=== PATIENT | female | born 1985 | race Caucasian/White ===

== ENCOUNTER → 2019-12-04 13:55 | Outpatient (CLI) | payer OTHER, SELFPAY ==
--- NOTE | ~2019-12-04 | CT_ITS ---
EXAMINATION: CT abdomen pelvis wo con DATE: 12/04/2019 14:17 INDICATION: Bilateral flank pain TECHNIQUE: Computed tomography (CT) of the abdomen and pelvis was performed without intravenous contr ast. The dose-length product (DLP) was 336.22 mGy-cm. Automated exposure control and iterative recons truction technique were employed. COMPARISON: 02/28/2017 FINDINGS: The lung bases are clear. The heart size is normal. The liver, spleen, pancreas, gallbladde r, and adrenal glands are normal. There are three nonobstructing stones of the right kidney which dexter sure up to 3 mm. There are three nonobstructing stones of the left kidney which measure up to 2 mm. A lthough the ureters are difficult to follow due to paucity of abdominal fat, there is a 2 mm calcific ation of the right pelvis in the expected location of the distal right ureter which was not present o n the prior examination. No pathologically enlarged abdominal or pelvic lymph nodes are identified. T here is no free intraperitoneal gas or evidence of bowel obstruction. IMPRESSION: 1. 2 mm calcification of the right pelvis in the expected location of the distal right ureter not bibi ntified on the prior examination, likely distal ureteral stone. 2. Bilateral nephrolithiasis. Reviewed, dictated and finalized at location B. IMPRESSION: 1. 2 mm calcification of the right pelvis in the expected location of the dista l right ureter not identified on the prior examination, likely distal ureteral stone. 2. Bilateral nephrolithiasis.
--- NOTE | ~2019-12-04 | XR_ITS ---
EXAMINATION: XR abdomen/kub 1V INDICATION: Flank and pelvic pain TECHNIQUE: Supine views of the abdomen were obtained on 2 radiographs. COMPARISON: None FINDINGS: There are punctate calcifications of the kidneys corresponding to the stone described on CT from today. A 2 mm calcification of the right pelvis may reflect the suspected distal ureteral stone from today CT. The bowel gas pattern is normal. The visualized lung bases are clear. IMPRESSION: 1. 2 mm right pelvic calcification possibly reflecting suspected right distal ureteral stone. 2. Bilateral nephrolithiasis. Reviewed, dictated and finalized at location B. IMPRESSION: 1. 2 mm right pelvic calcification possibly reflecting suspected right distal u reteral stone. 2. Bilateral nephrolithiasis.
== END ==
PROVIDERS: Visit Provider Nurse Practitioner Adult Health
DX: R10.9 Unspecified abdominal pain (principal); N20.0 Calculus of kidney
CPT/HCPCS: 74018; 74176